=== PATIENT | female | born 1980 | race Caucasian/White ===

== ENCOUNTER → 2025-01-31 11:15 | Outpatient (BNVA) | payer BC, SELFPAY | PROVIDERS: Visit Provider Internal Medicine Rheumatology | DX: M81.0 Age-related osteoporosis without current pathological fracture (principal); M25.531 Pain in right wrist | CPT/HCPCS: 36415; 73100; 80076; 82306; 82565; 85025; 85651; 86140; 86480; 86704; 86803; 87340 ==